=== PATIENT | male | born 1975 | race Caucasian/White ===

== ENCOUNTER 2024-08-03 10:55 | Emergency (ER) | payer SELFPAY ==
[2024-08-03] MEDS: Ketorolac 30 MG/ML SDV IM ONE (11:26)
== END 2024-08-03 11:40 | disposition home or self-care (01) ==
LOC: CC.ED 10:55
DX: M54.50 Low back pain, unspecified (principal); G89.29 Other chronic pain; Z91.040 Latex allergy status
CPT/HCPCS: 96372; 99283; 99284; J1885